=== PATIENT | female | born 1970 | race African-American/Black ===

== ENCOUNTER 2022-06-05 20:45 | Emergency (ER) | payer SELFPAY ==
[~2022-06-05] VITALS: Ht 149.9 cm; Wt 70.0 kg
[2022-06-05 20:49] VITALS: BP 119/90
== END 2022-06-06 02:17 | disposition left against medical advice (07) ==
LOC: ER 20:45
DX: Z53.21 Procedure and treatment not carried out due to patient leaving prior to being seen by health care provider (principal)
CPT/HCPCS: 93005